=== PATIENT | female | born 1995 | race American Indian/Alaskan Native ===

== ENCOUNTER 2020-10-12 16:59 | Emergency (ER) | payer SELFPAY ==
[2020-10-12 17:44] VITALS: BP 142/70
== END 2020-10-12 22:00 | disposition left against medical advice (07) ==
LOC: ED 16:59
DX: Z00.8 Encounter for other general examination (principal); Z53.21 Procedure and treatment not carried out due to patient leaving prior to being seen by health care provider

== ENCOUNTER 2021-07-18 15:01 | Emergency (ER) | payer SELFPAY | END 2021-07-18 16:41 | disposition left against medical advice (07) | LOC: ED 15:01 | DX: M54.9 Dorsalgia, unspecified (principal); M54.2 Cervicalgia; V49.59XA Passenger injured in collision with other motor vehicles in traffic accident, initial encounter; X58.XXXA Exposure to other specified factors, initial encounter; Y93.89 Activity, other specified; Y92.89 Other specified places as the place of occurrence of the external cause; Y99.8 Other external cause status; Z53.21 Procedure and treatment not carried out due to patient leaving prior to being seen by health care provider ==